=== PATIENT | male | born 1990 | race Caucasian/White ===

== ENCOUNTER 2020-02-10 17:34 | Emergency (ER) | payer OTHER ==
[~2020-02-10] VITALS: Ht 175.3 cm; Wt 54.5 kg
[~2020-02-10 17:34] MED LIST: HYDR-3165 PO; PENI500T PO
[2020-02-10 18:43] LABS: BASO % 1 % (0-3); EOS % 1 % (0-3); HEMATOCRIT 45.8 % (39.0-53.0); HEMOGLOBIN 15.5 g/dL (13.0-17.5); LYMPH % 34 % (24-48); MEAN CORPUSCULAR HEMOGLOBIN 28 pg (25-35); MEAN CORPUSCULAR HGB CONC 34 g/dL (31-37); MEAN CORPUSCULAR VOLUME 83 fL (79-100); MONO # 0.5 x10^3/uL (0.0-1.1); MONO % 9 % (0-9); NEUT # 3.3 x10^3/uL (1.8-7.7); NEUT % 56 % (31-73); PLATELET COUNT 156 x10^3/uL (140-400); RED BLOOD COUNT 5.49 x10^6/uL (4.30-5.70); RED CELL DISTRIBUTION WIDTH 12.7 % (11.5-14.5)
[2020-02-10 18:46] LABS: BILIRUBIN,URINE NEGATIVE (NEG); CLARITY,URINE CLEAR; NITRITE,URINE NEGATIVE (NEG); PH,URINE 7.5 (<5.0-8.0); PROTEIN,URINE NEGATIVE (NEG-TRACE); UROBILINOGEN,URINE 0.2 mg/dL (0.2 mg/dL)
[2020-02-10 18:52] LABS: PROTHROMBIN TIME PATIENT 13.3 SEC (11.7-14.0)
[2020-02-10 18:52] LABS: BARBITURATES NEG (NEG); BENZODIAZEPINES NEG (NEG); CANNABINOIDS NEG (NEG); COCAINE NEG (NEG); METHADONE NEG (NEG); OPIATES NEG (NEG); PHENCYCLIDINE NEG (NEG)
[2020-02-10 18:53] LABS: AMPHETAMINE/METHAMPHETAMINE NEG (NEG)
[2020-02-10 18:55] LABS: D-DIMER 0.85 ug/mlFEU (0.00-0.50)
[2020-02-10 18:56] LABS: CALCIUM 9.2 mg/dL (8.5-10.1); CREATININE 0.8 mg/dL (0.7-1.3); POTASSIUM 3.8 mmol/L (3.5-5.1)
[2020-02-10 18:59] LABS: COLOR,URINE STRAW
[2020-02-10 19:01] LABS: BACTERIA,URINE 0 /HPF (0-FEW); RBC,URINE 0 /HPF (0-2); WBC,URINE 0 /HPF (0-4)
[2020-02-10 19:03] LABS: INFLUENZA A PATIENT NEGATIVE (NEGATIVE); INFLUENZA B PATIENT NEGATIVE (NEGATIVE)
[2020-02-10 19:04] LABS: ALBUMIN 4.3 g/dL (3.4-5.0); ALBUMIN/GLOBULIN RATIO 1.3 (1.0-1.7); MAGNESIUM 2.1 mg/dL (1.8-2.4); TOTAL BILIRUBIN 0.2 mg/dL (0.2-1.0); TOTAL PROTEIN 7.5 g/dL (6.4-8.2)
[2020-02-10 19:11] LABS: CREATINE KINASE 42 U/L (39-308)
--- NOTE | 2020-02-10 20:03 | RAD ---
Study: CR CHEST PA LATERAL Indication: Shortness of air. Cough. Dizziness. Comparison: None recently. Findings: No lobar consolidation, pleural effusion or pneumothorax. The cardiomediastinal silhouette and letha are within normal limits. Impression: No acute radiographic abnormality of the chest. Electronically signed by: FERMIN MARTINEZ MD (02/10/2020 8:00 PM) [id number]
--- NOTE | 2020-02-10 20:20 | PHYS DOC ---
Past Medical History Past Medical History: Anxiety, Other Additional Past Medical Histor: poor dental health,PNEUMOTHORAX W/CHEST TUBE (OSCAR RITCHIE APRN) Past Surgical History: No Surgical History (OSCAR RITCHIE APRN) Smoking Status: Current Every Day Smoker Additional Information: CURRENTLY VAPES, QUIT SMOKING CIGARETTES. Alcohol Use: Occasionally Drug Use: None (OSCAR RITCHIE APRN) Attending Signature I have participated in the care of this patient and I have reviewed and agree with all pertinent clinical information above including history, exam, and recommendations. (KAYLEE LORENZO MD) Adult General Chief Complaint Chief Complaint: DIZZY/LIGHT HEADED HPI HPI Patient is a 29 year old male who presents to the emergency department with complaints of dizziness, shortness of breath, dry cough, sore throat, and feeling lightheaded for the last 3 days. Patient denies any recent travel or known exposure. States that his brother had a similar illness recently and was tested for Covid-19. Patient states that his brothers test was negative. He reports that he uses nicotine vapor products daily and that he did use marijuana vape products on occasion until the summer 2018 when vaping marijuana products was causing lung injuries. He denies any fever, nausea, vomiting, diarrhea, abdominal pain, chest pain, palpitations, vision changes, numbness, tingling, or weakness. Patient reports previous history of a spontaneous pneumothorax, he states that his symptoms today do not feel similar to that prior experience. He currently denies any pain. (OSCAR RITCHIE APRN) Review of Systems Review of Systems Complete ROS is negative unless otherwise noted in HPI. (OSCAR RITCHIE APRN) Current Medications Current Medications Current Medications Medications (Trade) Dose Ordered Sig/Namrata Start Time Stop Time Status Last Admin Dose Admin Info (CONTRAST GIVEN -- Rx MONITORING) 1 each PRN DAILY PRN 02/10/20 20:45 02/10/20 22:35 DC Iohexol (Omnipaque 350 Mg/ml) 100 ml 1X ONCE 02/10/20 20:45 02/10/20 20:46 DC Sodium Chloride 1,000 ml @ 1,000 mls/hr 1X ONCE 02/10/20 22:00 02/10/20 22:35 DC 02/10/20 21:43 1,000 MLS/HR (KAYELE LORENZO MD) Allergies Allergies Allergies Coded Allergies Type Severity Reaction Last Updated Verified No Known Drug Allergies 11/02/16 No (KAYLEE LORENZO MD) Physical Exam Physical Exam See Above Constitutional: Well developed, well nourished, no acute distress, non-toxic appearance, thin. [] HENT: Normocephalic, atraumatic, bilateral external ears normal, erythema of posterior pharynx with 2+ tonsils bilaterally, no oral exudates, nose congested bilaterally Eyes: PERRLA, EOMI, conjunctiva normal, no discharge. [] Neck: Normal range of motion, bilateral anterior cervical chain lymph node enlargement and tenderness to palpation, supple, no stridor. [] Cardiovascular:Heart rate regular rhythm, no murmur [] Lungs & Thorax: Bilateral breath sounds clear to auscultation, Respirations even and unlabored, no retractions, no respiratory distress [] Abdomen: soft, no tenderness Skin: Warm, dry, no erythema, no rash. [] Back: No tenderness Extremities: No cyanosis, ROM intact, no edema. [] Neurologic: Alert and oriented X 3, no focal deficits noted. [] Psychologic: Affect normal, judgement normal, mood normal. [] (OSCAR RITCHIE APRN) Current Patient Data Vital Signs Vital Signs Date Time Temp Pulse Resp B/P (MAP) Pulse Ox O2 Delivery O2 Flow Rate FiO2 02/10/20 20:41 60 16 100 02/10/20 18:42 127/73 (91) Room Air 02/10/20 17:59 98.5 98.5 (KAYLEE LORENZO MD) Lab Values Laboratory Tests Test 02/10/20 18:06 02/10/20 18:23 02/10/20 18:30 02/10/20 18:33 Influenza Type A Antigen Negative (NEGATIVE) Influenza Type B Antigen Negative (NEGATIVE) Glucose (Fingerstick) 98 mg/dL (70-99) Urine Collection Type Void Urine Color Straw Urine Clarity Clear Urine pH 7.5 (<5.0-8.0) Urine Specific Dorena <=1.005 (1.000-1.030) Urine Protein Negative mg/dL (NEG-TRACE) Urine Glucose (UA) Negative mg/dL (NEG) Urine Ketones (Stick) Negative mg/dL (NEG) Urine Blood Negative (NEG) Urine Nitrite Negative (NEG) Urine Bilirubin Negative (NEG) Urine Urobilinogen Dipstick 0.2 mg/dL (0.2 mg/dL) Urine Leukocyte Esterase Negative (NEG) Urine RBC 0 /HPF (0-2) Urine WBC 0 /HPF (0-4) Urine Squamous Epithelial Cells None /LPF Urine Bacteria 0 /HPF (0-FEW) Urine Opiates Screen Neg (NEG) Urine Methadone Screen Neg (NEG) Urine Barbiturates Neg (NEG) Urine Phencyclidine Screen Neg (NEG) Urine Amphetamine/Methamphetamine Neg (NEG) Urine Benzodiazepines Screen Neg (NEG) Urine Cocaine Screen Neg (NEG) Urine Cannabinoids Screen Neg (NEG) Urine Ethyl Alcohol Neg (NEG) White Blood Count 6.0 x10^3/uL (4.0-11.0) Red Blood Count 5.49 x10^6/uL (4.30-5.70) Hemoglobin 15.5 g/dL (13.0-17.5) Hematocrit 45.8 % (39.0-53.0) Mean Corpuscular Volume 83 fL (79-100) Mean Corpuscular Hemoglobin 28 pg (25-35) Mean Corpuscular Hemoglobin Concent 34 g/dL (31-37) Red Cell Distribution Width 12.7 % (11.5-14.5) Platelet Count 156 x10^3/uL (140-400) Neutrophils (%) (Auto) 56 % (31-73) Lymphocytes (%) (Auto) 34 % (24-48) Monocytes (%) (Auto) 9 % (0-9) Eosinophils (%) (Auto) 1 % (0-3) Basophils (%) (Auto) 1 % (0-3) Neutrophils # (Auto) 3.3 x10^3/uL (1.8-7.7) Lymphocytes # (Auto) 2.0 x10^3/uL (1.0-4.8) Monocytes # (Auto) 0.5 x10^3/uL (0.0-1.1) Eosinophils # (Auto) 0.0 x10^3/uL (0.0-0.7) Basophils # (Auto) 0.0 x10^3/uL (0.0-0.2) Prothrombin Time 13.3 SEC (11.7-14.0) Prothrombin Time INR 1.1 (0.8-1.1) Activated Partial Thromboplast Time 28 SEC (24-38) D-Dimer (Zohreh) 0.85 ug/mlFEU (0.00-0.50) H Sodium Level 145 mmol/L (136-145) Potassium Level 3.8 mmol/L (3.5-5.1) Chloride Level 107 mmol/L (98-107) Carbon Dioxide Level 26 mmol/L (21-32) Anion Gap 12 (6-14) Blood Urea Nitrogen 8 mg/dL (8-26) Creatinine 0.8 mg/dL (0.7-1.3) Estimated GFR (Cockcroft-Gault) 116.0 BUN/Creatinine Ratio 10 (6-20) Glucose Level 100 mg/dL (70-99) H Calcium Level 9.2 mg/dL (8.5-10.1) Magnesium Level 2.1 mg/dL (1.8-2.4) Total Bilirubin 0.2 mg/dL (0.2-1.0) Aspartate Amino Transferase (AST) 16 U/L (15-37) Alanine Aminotransferase (ALT) 20 U/L (16-63) Alkaline Phosphatase 52 U/L (46-116) Creatine Kinase 42 U/L (39-308) Creatine Kinase MB (Mass) < 0.5 ng/mL (0.0-3.6) Creatine Kinase MB Relative Index % (0-4) Troponin I Quantitative < 0.017 ng/mL (0.000-0.055) Total Protein 7.5 g/dL (6.4-8.2) Albumin 4.3 g/dL (3.4-5.0) Albumin/Globulin Ratio 1.3 (1.0-1.7) Ethyl Alcohol Level < 10 mg/dL (0-10) Laboratory Tests 02/10/20 18:33 Laboratory Tests 02/10/20 18:33 (KAYLEE LORENZO MD) EKG EKG [] (OSCAR RITCHIE APRN) Radiology/Procedures Radiology/Procedures interpolated PACs no STEMI, rate [address] Polk[] PROCEDURE: CT ANGIOGRAPHY CHEST Study: CT CHEST WITH CONTRAST - PULMONARY ANGIOGRAM History: Shortness of air, dizziness and elevated d-dimer. Comparison: None. Technique: Helical CT of the chest performed after the administration of 100 cc Omnipaque 350 intravenous contrast and timed for angiographic evaluation of the pulmonary arteries per PE protocol. Coronal and sagittal 3D MIP reformations were obtained. One or more of the following individualized dose reduction techniques were utilized for this examination: 1. Automated exposure control 2. Adjustment of the mA and/or kV according to patient size 3. Use of iterative reconstruction technique. Findings: Pulmonary Arteries: No acute pulmonary embolism. Normal main pulmonary artery caliber. Heart/Systemic Vasculature: Unremarkable aorta and visualized great vessels. No CT findings of overt right heart strain. Mediastinum: Within normal limits for patient age. Lungs: Paraseptal cystic change at the lung apices and mild apical scarring. No airspace infiltrate, pleural effusion or pneumothorax. 4 mm nodule within the left lower lobe on image 99 series 3. Neck/Axilla/Body Wall: Scattered axillary lymph nodes which are not pathologically enlarged. Upper Abdomen: Within normal limits. Bones: No acute osseous abnormality. Miscellaneous: None. IMPRESSION: 1. No pulmonary embolism or other acute abnormality seen throughout the chest to account for the patient's symptoms. 2. Mild paraseptal emphysematous changes at the lung apices with mild apical scarring. 3. 4 mm left lower lobe nodule. Per Fleischner guidelines, no dedicated follow-up is needed based on size however if there are risk factors for lung malignancy optional CT of the chest could be performed in 12 months. (OSCAR RITCHIE APRN) Course & Med Decision Making Course & Med Decision Making Pertinent Labs and Imaging studies reviewed. (See chart for details) 29-year-old male who presented to the emergency room with complaints of a sore throat, dry cough, dizziness, and lightheadedness for the last 3 days. Patient CBC is unremarkable; PT INR within normal limits; d-dimer is elevated at 0.85; CMP is unremarkable, troponin and CK testing is negative; UA is unremarkable; urine drug screen is negative; influenza testing is negative; strep test is positive. Prescription written for amoxicillin 875 mg twice daily x10 days, Chest x-ray revealed no acute findings; there was a 4 mm nodule found in the lower left lobe on CT, no acute findings, no pulmonary embolism patient encouraged to throw away his toothbrush after his been on antibiotics for 24 hours, warm salt water gargles recommended, take Tylenol as needed for pain or fever. Follow-up with primary care doctor next week, return to the ER symptoms worsen. Also encouraged patient to follow-up with his primary care doctor in [address] of his chest with his history of using tobacco or vape products for the last 16 years. Patient verbalized an understanding of home care, medications, follow-up, and return to ED instructions and was in agreement with the plan of care. [] (OSCAR RITCHIE APRN) Dragon Disclaimer Dragon Disclaimer This electronic medical record was generated, in whole or in part, using a voice recognition dictation system. (OSCAR RITCHIE APRN) Departure Departure Impression: Primary Impression: Acute streptococcal pharyngitis Additional Impression: Lung nodule Disposition: HOME, SELF-CARE Condition: STABLE Referrals: NO PCP (PCP) Patient Instructions: Pulmonary Nodule, [id number], Strep Throat, [id number] Additional Instructions: Fill prescription and use as directed. Recommend warm salt water gargles as needed for relief of discomfort. Alternate Tylenol and ibuprofen as needed for fever/pain. Discard your toothbrush tomorrow and begin using a new toothbrush. Follow-up with primary care doctor if symptoms persist. Return to the ER if sym ptoms worsen. Recommend that you follow-up with your primary care doctor in [address] scan of your chest due to the finding of a pulmonary nodule, you have used tobacco products or vape for the last 16 years, which puts you at risk of developing chronic lung problems. Scripts Amoxicillin (AMOXICILLIN) 875 Mg Tablet 1 TAB PO BID for 10 Days, #20 TAB 0 Refills Prov: OSCAR RITCHIE APRN 02/10/20 Problem Qualifiers OSCAR RITCHIE APRN Feb 10, 2020 20:20 KAYLEE LORENZO MD Feb 10, 2020 22:49
[2020-02-10 20:41] VITALS: BP 114/62
[2020-02-10] MEDS ORDERED: IOHEXOL 350 MG/ML 100 ML VIAL. IV ONE (20:45)
[2020-02-10] MEDS ORDERED: CONTRAST GIVEN. MC PRN (20:45)
--- NOTE | 2020-02-10 21:19 | EKG ---
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
--- NOTE | 2020-02-10 21:20 | RAD ---
Study: CT CHEST WITH CONTRAST - PULMONARY ANGIOGRAM History: Shortness of air, dizziness and elevated d-dimer. Comparison: None. Technique: Helical CT of the chest performed after the administration of 100 cc Omnipaque 350 intravenous contrast and timed for angiographic evaluation of the pulmonary arteries per PE protocol. Coronal and sagittal 3D MIP reformations were obtained. One or more of the following individualized dose reduction techniques were utilized for this examination: 1. Automated exposure control 2. Adjustment of the mA and/or kV according to patient size 3. Use of iterative reconstruction technique. Findings: Pulmonary Arteries: No acute pulmonary embolism. Normal main pulmonary artery caliber. Heart/Systemic Vasculature: Unremarkable aorta and visualized great vessels. No CT findings of overt right heart strain. Mediastinum: Within normal limits for patient age. Lungs: Paraseptal cystic change at the lung apices and mild apical scarring. No airspace infiltrate, pleural effusion or pneumothorax. 4 mm nodule within the left lower lobe on image 99 series 3. Neck/Axilla/Body Wall: Scattered axillary lymph nodes which are not pathologically enlarged. Upper Abdomen: Within normal limits. Bones: No acute osseous abnormality. Miscellaneous: None. IMPRESSION: 1. No pulmonary embolism or other acute abnormality seen throughout the chest to account for the patient's symptoms. 2. Mild paraseptal emphysematous changes at the lung apices with mild apical scarring. 3. 4 mm left lower lobe nodule. Per Fleischner guidelines, no dedicated follow-up is needed based on size however if there are risk factors for lung malignancy optional CT of the chest could be performed in 12 months. Electronically signed by: FERMIN MARTINEZ MD (02/10/2020 9:17 PM) [id number]
[2020-02-10] MEDS ORDERED: AMOX875T PO (21:33)
[2020-02-10] MEDS ORDERED: IV NORMAL SALINE 1000ML BAG 1,000 ML IV ONE (22:00)
== END 2020-02-10 22:34 | disposition home or self-care (01) ==
LOC: ER 17:34
DX: J02.0 Streptococcal pharyngitis (principal); B96.89 Other specified bacterial agents as the cause of diseases classified elsewhere; R91.1 Solitary pulmonary nodule; R42 Dizziness and giddiness; R06.02 Shortness of breath; F41.9 Anxiety disorder, unspecified; F17.210 Nicotine dependence, cigarettes, uncomplicated; Z98.890 Other specified postprocedural states
CPT/HCPCS: 36415; 71046; 71275; 80053; 80307; 81001; 82553; 82962; 83735; 84484; 85025; 85379; 85610; 85730; 87804; 87880; 93005; 96360; 99285; G0480; J7030

== ENCOUNTER 2020-06-19 04:31 | Emergency (ER) | payer OTHER ==
[~2020-06-19] VITALS: Ht 175.3 cm; Wt 59.1 kg
[~2020-06-19 04:31] MED LIST changes: +AMOX875T PO
[2020-06-19] MEDS ORDERED: CHLO15MO2 PO (04:40)
[2020-06-19] MEDS ORDERED: AMOX1TAB61 PO (04:40)
[2020-06-19] MEDS ORDERED: PRED20TA PO (04:40)
--- NOTE | 2020-06-19 04:40 | PHYS DOC ---
Past Medical History Past Medical History: Anxiety, Other Additional Past Medical Histor: poor dental health,PNEUMOTHORAX W/CHEST TUBE Past Surgical History: No Surgical History Smoking Status: Current Every Day Smoker Alcohol Use: Occasionally Drug Use: None General Adult EDM: Chief Complaint: DENTAL PROBLEM HPI: HPI: Patient is a 29 year old [f__sex] who presents with [] Review of Systems: Review of Systems: Constitutional: Denies fever or chills. [] Eyes: Denies change in visual acuity. [] HENT: Denies nasal congestion or sore throat. [] Respiratory: Denies cough or shortness of breath. [] Cardiovascular: Denies chest pain or edema. [] GI: Denies abdominal pain, nausea, vomiting, bloody stools or diarrhea. [] : Denies dysuria. [] Musculoskeletal: Denies back pain or joint pain. [] Integument: Denies rash. [] Neurologic: Denies headache, focal weakness or sensory changes. [] Endocrine: Denies polyuria or polydipsia. [] Lymphatic: Denies swollen glands. [] Psychiatric: Denies depression or anxiety. [] Heart Score: Risk Factors: Risk Factors: DM, Current or recent (<one month) smoker, HTN, HLP, family history of CAD, obesity. Risk Scores: Score 0 - 3: 2.5% MACE over next 6 weeks - Discharge Home Score 4 - 6: 20.3% MACE over next 6 weeks - Admit for Clinical Observation Score 7 - 10: 72.7% MACE over next 6 weeks - Early Invasive Strategies Allergies: Allergies: Allergies Coded Allergies Type Severity Reaction Last Updated Verified No Known Drug Allergies 11/02/16 No Physical Exam: PE: Constitutional: Well developed, well nourished, no acute distress, non-toxic appearance. [] HENT: Normocephalic, atraumatic, bilateral external ears normal, oropharynx moist, no oral exudates, nose normal. [] Eyes: PERRLA, EOMI, conjunctiva normal, no discharge. [] Neck: Normal range of motion, no tenderness, supple, no stridor. [] Cardiovascular:Heart rate regular rhythm, no murmur [] Lungs & Thorax: Bilateral breath sounds clear to auscultation [] Abdomen: Bowel sounds normal, soft, no tenderness, no masses, no pulsatile masses. [] Skin: Warm, dry, no erythema, no rash. [] Back: No tenderness, no CVA tenderness. [] Extremities: No tenderness, no cyanosis, no clubbing, ROM intact, no edema. [] Neurologic: Alert and oriented X 3, normal motor function, normal sensory function, no focal deficits noted. [] Psychologic: Affect normal, judgement normal, mood normal. [] EKG: EKG: [] Radiology/Procedures: Radiology/Procedures: [] Course & Med Decision Making: Course & Med Decision Making Pertinent Labs and Imaging studies reviewed. (See chart for details) [] Dragon Disclaimer: Dragon Disclaimer: This electronic medical record was generated, in whole or in part, using a voice recognition dictation system. Departure Departure Impression: Primary Impression: Dentalgia Additional Impression: Dental caries Disposition: HOME, SELF-CARE Condition: STABLE Referrals: NO PCP (PCP) Patient Instructions: Dental Caries, Toothache-Brief Additional Instructions: Please call and follow-up with a dentist for further evaluation and treatment. Scripts Hydrocodone/Apap 5-325 (NORCO 5-325 TABLET) 1 Each Tablet 0.5-1 TAB PO PRN Q6HRS PRN for PAIN, #10 TAB 0 Refills Prov: MARIVEL LOPEZ DO 06/19/20 Prednisone (PREDNISONE) 20 Mg Tablet 2 TAB PO DAILY, #8 TAB Start this medication tomorrow, Friday06/20/20 Prov: MARIVEL LOPEZ DO 06/19/20 Chlorhexidine Gluconate (PERIDEX) 15 Ml Mouthwash 15 ML PO BID, #473 ML 0 Refills Prov: MARIVEL LOPEZ DO 06/19/20 Amoxicillin/Potassium Clav (AUGMENTIN 875-125 TABLET) 1 Each Tablet 1 TAB PO BID, #14 TAB Prov: MARIVEL LOPEZ DO 06/19/20 Justicifation of Admission Dx: Justifications for Admission: Justification of Admission Dx: N/A MARIVEL LOPEZ DO Jun 19, 2020 04:40
[2020-06-19 04:55] VITALS: BP 127/66
[2020-06-19] MEDS ORDERED: AMOXICILLIN/K CLAV 875/125MG TABLET. PO ONE (05:00)
[2020-06-19] MEDS ORDERED: DEXAMETHASONE 4 MG TABLET PO ONE (05:00)
[2020-06-19] MEDS ORDERED: HYDR-3164 PO (05:03)
[2020-06-19] MEDS ORDERED: KETOROLAC 30 MG/ML VIAL. IM ONE (05:30)
== END 2020-06-19 05:23 | disposition home or self-care (01) ==
LOC: ER 04:31
DX: F41.9 Anxiety disorder, unspecified (principal); F17.200 Nicotine dependence, unspecified, uncomplicated; Z98.890 Other specified postprocedural states
CPT/HCPCS: 96372; 99283; J1885